=== PATIENT | male | born 1935 | race Caucasian/White ===

== ENCOUNTER 2016-07-14 07:11 | Day surgery (SDC) | payer MEDICARE ==
--- NOTE | ~2016-07-14 | EGD ---
EGD REPORT [facility] [address] [place] [address] NAME: ZAC SZYMANSKI : 37 STATUS : REG [facility]#: [id number] AGE: 81 ADM/REG DATE : 07/14/16 MR#: [id number] REPORT SERV DATE: 07/14/16 DICTATED BY: JUANITA MORALES DATE: 07/14/16 REPORT STATUS : Draft TRANSCRIBED BY: [employer] DATE: 07/14/16 Endoscopy Center Patient Name: Zac Szymanski Date of : 1935 Attending MD: JUANITA MORALES MD Procedure Date No Time: 07/14/2016 Procedure: Upper GI endoscopy Indications: Iron deficiency anemia, Heme positive stool Referring MD: ALL VIZCARRA MD Medicines: as per anesthesia Complications: No immediate complications. Procedure: Pre-Anesthesia Assessment: - ASA Grade Assessment: III - A patient with severe systemic disease. After obtaining informed consent, the endoscope was passed under direct vision. Throughout the procedure, the patient's blood pressure, pulse, and oxygen saturations were monitored continuously. The GIF [id number] was introduced through the mouth, and advanced to the third part of duodenum. The upper GI endoscopy was accomplished without difficulty. The patient tolerated the procedure. Findings: The examined esophagus was normal. A deformity was found at the pylorus. The cardia and gastric fundus were normal on retroflexion. The examined duodenum was normal. A single localized medium-sized erosion was found at the pylorus. Impression: - Normal esophagus. 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 - Normal examined duodenum. - Erosive gastropathy. Recommendation: - Continue present medications. - Use Prilosec (omeprazole) 40 mg PO daily. Procedure Code(s): --- Professional --- 21502, Esophagogastroduodenoscopy, flexible, transoral; diagnostic, including collection of specimen(s) by brushing or washing, when performed (separate procedure) Diagnosis Code(s): --- Professional --- K31.89, Other diseases of stomach and duodenum EGD REPORT [address] [address] NAME: ZAC SZYMANSKI : [birth year] STATUS : REG [facility] PAT#: [id number] AGE: 81 ADM/REG DATE : 07/14/16 MR#: [id number] REPORT SERV DATE: 07/14/16 DICTATED BY: JUANITA MORALES. DATE: 07/14/16 REPORT STATUS : Draft TRANSCRIBED BY: [employer] DATE: 07/14/16 K31.9, Disease of stomach and duodenum, unspecified D50.9, Iron deficiency anemia, unspecified R19.5, Other fecal abnormalities CPT copyright 2013 [employer]. All rights reserved. The codes documented in this report are preliminary and upon label coder review may be revised to meet current compliance requirements. JUANITA MORALES MD 07/14/2016 9:42 AM This report has been signed electronically. Number of Addenda: 0 Note Initiated On: 07/14/2016 9:10 AM Scope Withdrawal Time 0 hours 0 minutes [address] [place] [id number]
--- NOTE | ~2016-07-14 | EGD ---
EGD REPORT [facility] [address] [place]. [address] NAME: ZAC SZYMANSKI : [birth year] STATUS : REG [facility]#: [id number] AGE: 81 ADM/REG DATE : 07/14/16 MR#: [id number] REPORT SERV DATE: 07/14/16 DICTATED BY: JUANITA MORALES DATE: 07/14/16 REPORT STATUS : Draft [facility]: [facility] DATE: 07/14/16 Endoscopy Center Patient Name: Zac Szymanski Date of : 1935 Attending MD: JUANITA MORALES MD Procedure Date No Time: 07/14/2016 Procedure: Colonoscopy Indications: Heme positive stool, Iron deficiency anemia Referring MD: ALL VIZCARRA MD Medicines: as per anesthesia Complications: No immediate complications. Procedure: Pre-Anesthesia Assessment: - ASA Grade Assessment: III - A patient with severe systemic disease. After I obtained informed consent, the scope was passed under direct vision. Throughout the procedure, the patient's blood pressure, pulse, and oxygen saturations were monitored continuously. The PCF [id number] was introduced through the anus and advanced to the ileocolonic anastomosis. The colonoscopy was performed without difficulty. The patient tolerated the procedure. The quality of the bowel preparation was fair. Findings: The perianal and digital rectal examinations were normal. There was evidence of a prior end-to-end colo-colonic anastomosis in the sigmoid colon. This was patent. This was characterized by healthy appearing mucosa. This was traversed. There was evidence of a prior end-to-side ileo-colonic anastomosis in the transverse colon. This was patent. This was characterized by ulceration. This was traversed. Biopsies were taken with a cold forceps for histology. Localized moderate inflammation characterized by erosions, erythema and friability was found in the transverse colon. Biopsies were taken with a cold forceps for histology. Many small and large-mouthed diverticula were found in the sigmoid colon, in the descending colon and in the transverse colon. Internal hemorrhoids were found during endoscopy and were mild. Impression: - Patent end-to-end colo-colonic anastomosis. - Patent end-to-side ileo-colonic anastomosis. Biopsied. - Localized moderate inflammation was found in the transverse colon. Biopsied. - Diverticulosis in the sigmoid colon, in the descending colon and in the transverse colon. EGD REPORT [place] [id number] [facility] [place]. [address] NAME: ZAC SZYMANSKI : 37 STATUS : REG [facility] PAT#: [id number] AGE: 81 ADM/REG DATE : 07/14/16 MR#: [id number] REPORT SERV DATE: 07/14/16 DICTATED BY: JUANITA MORALES DATE: 07/14/16 REPORT STATUS : Draft TRANSCRIBED BY: [employer] DATE: 07/14/16 - Internal hemorrhoids. Recommendation: - Await pathology results. Procedure Code(s): --- Professional --- 99390, Colonoscopy, flexible, proximal to splenic flexure; with biopsy, single or multiple Diagnosis Code(s): --- Professional --- Z98.0, Intestinal bypass and anastomosis status K52.9, Noninfective gastroenteritis and colitis, unspecified K64.8, Other hemorrhoids K57.30, Diverticulosis of large intestine without perforation or abscess without bleeding R19.5, Other fecal abnormalities D50.9, Iron deficiency anemia, unspecified CPT copyright 2013 [employer]. All rights reserved. The codes documented in this report are preliminary and upon terrestrial ecologist review may be revised to meet current compliance requirements. JUANITA MORALES MD 07/14/2016 10:11 AM This report has been signed electronically. Number of Addenda: 0 Note Initiated On: 07/14/2016 9:13 AM Scope Withdrawal Time 0 hours 0 minutes 0 seconds [address] [place] [address]
[~2016-07-14 07:11] MED LIST: ASAB PO; AVODART PO; CO Q-10100 MG PO; ELIQUIS 5 MG TAB5 MG PO; EYE SUPPORT PO; FERROUS SULF325 M1 PO; FISH-EPA1000 MG PO; HYDROCHLOROT25 MG PO; MULTIPLE VIT PO; PLETAL100 M1 OR; PLETAL100 PO; PROSCAR5 PO; ZOCOR40 PO
[2016-08-25] MEDS ORDERED: COZ50 PO (09:22)
[2016-08-25] MEDS ORDERED: COREG3 PO (09:22)
[2016-09-03] MEDS ORDERED: PERCOCET 7.5/321 TAB PO (14:34)
[2016-09-03] MEDS ORDERED: ZOFRAN4 PO (14:34)
== END 2016-07-14 23:59 | disposition home or self-care (01) ==
LOC: DMU 07:11
PROVIDERS: Internal Medicine Gastroenterology
PROC: 0DBE8ZX Excision of Large Intestine, Via Natural or Artificial Opening Endoscopic, Diagnostic (ICD-10-PCS; 2016-07-14)
PROC: 0DJ08ZZ Inspection of Upper Intestinal Tract, Via Natural or Artificial Opening Endoscopic (ICD-10-PCS; principal; 2016-07-14 08:30)
PROC: 0DBL8ZX Excision of Transverse Colon, Via Natural or Artificial Opening Endoscopic, Diagnostic (ICD-10-PCS; 2016-07-14 08:30)
DX: K64.8 Other hemorrhoids (principal); K57.30 Diverticulosis of large intestine without perforation or abscess without bleeding; K31.89 Other diseases of stomach and duodenum; K31.9 Disease of stomach and duodenum, unspecified; D50.9 Iron deficiency anemia, unspecified; I10 Essential (primary) hypertension; E11.9 Type 2 diabetes mellitus without complications; Z95.0 Presence of cardiac pacemaker; Z90.49 Acquired absence of other specified parts of digestive tract; Z98.0 Intestinal bypass and anastomosis status; Z96.641 Presence of right artificial hip joint; Z98.890 Other specified postprocedural states
CPT/HCPCS: 82962; 88305